=== PATIENT | female | born 1985 | race Caucasian/White ===

== ENCOUNTER 2016-10-22 22:48 | Emergency (ER) | payer OTHER, BC ==
[~2016-10-22] VITALS: Ht 157.5 cm; Wt 79.4 kg
[2016-10-23] MEDS ORDERED: KETOROLAC 60 MG/2 ML VIAL (J1885) IM ONE (02:15)
[2016-10-23] MEDS ORDERED: KETOROLAC 30 MG/ML VIAL (J1885) As Ordered ONE (03:00)
[2016-10-23] MEDS ORDERED: CODE60TA2 PO (03:02)
[2016-10-23] MEDS ORDERED: CODE30TA3 PO (03:03)
[2016-10-23 03:15] VITALS: BP 122/70
--- NOTE | 2016-10-23 08:44 | REP ---
Right knee five views: There are no comparisons. Mineralization and joint spaces are normal. There is no fracture or dislocation. No unusual calcifications. There is an effusion in the suprapatellar pouch. Impression: Suprapatellar effusion. Otherwise, negative right knee. Signed by Ken Wyman MD 10/23/2016 08:36 A
--- NOTE | 2016-10-24 07:10 | ED PDOC ---
Post-Departure Follow-Up ncog faxed formal report of right knee film for fu Walter Odom MD October 24, 2016 07:10
== END 2016-10-23 03:52 | disposition home or self-care (01) ==
LOC: M ED 10-23 00:11
DX: M23.91 Unspecified internal derangement of right knee (principal); M25.461 Effusion, right knee; X58.XXXA Exposure to other specified factors, initial encounter; Y92.89 Other specified places as the place of occurrence of the external cause; Y93.89 Activity, other specified; F17.200 Nicotine dependence, unspecified, uncomplicated; Z90.49 Acquired absence of other specified parts of digestive tract; Y99.0 Civilian activity done for income or pay
CPT/HCPCS: 73564; 96372; 99283; J1885

== ENCOUNTER → 2017-11-24 | Outpatient (CLI) | payer OTHER | LOC: M WUC 13:54 | DX: M25.561 Pain in right knee (principal) | CPT/HCPCS: 73560 ==

== ENCOUNTER 2018-03-27 13:03 | Emergency (ER) | payer SELFPAY, OTHER | END 2018-03-27 14:37 | disposition home or self-care (01) | LOC: M ED 13:03 | DX: B02.9 Zoster without complications (principal); L02.412 Cutaneous abscess of left axilla; Z87.440 Personal history of urinary (tract) infections; Z87.442 Personal history of urinary calculi; Z72.0 Tobacco use; Z88.5 Allergy status to narcotic agent | CPT/HCPCS: 99283 ==

== ENCOUNTER → 2018-06-24 | Outpatient (REF) | payer OTHER ==
[~2018-06-24] MED LIST: ACET30TAB PO; BACT800T5 PO; CODE30TA3 PO; CODE60TA2 PO; VALA1TAB2 PO
== END ==
LOC: M SFHCPLAZ 17:51
PROVIDERS: ATTEND Dermatology
DX: D22.72 Melanocytic nevi of left lower limb, including hip (principal)

== ENCOUNTER → 2018-08-12 | Outpatient (CLI) | payer OTHER ==
--- NOTE | 2018-08-12 17:04 | REP ---
Clinical: Umbilical hernia. Technique: Real time haas scale ultrasound examination using linear high frequency and curved array transducer. Findings: Directed ultrasound examination of the periumbilical region demonstrates a supraumbilical fat-containing hernia measuring 5.7 x 2.2 x 4.7 cm with a 1 cm defect through the abdominal wall. Impression: 5.7 cm fat containing supraumbilical ventral hernia. Electronically Signed by Gamaliel Renae MD 08/12/2018 04:56 P
== END ==
LOC: M RAD 07:12
PROVIDERS: ATTEND Surgery
DX: K43.9 Ventral hernia without obstruction or gangrene (principal)

== ENCOUNTER → 2021-02-19 | Outpatient (REF) | payer OTHER ==
[~2021-02-19] MED LIST changes: +ACET-716 PO; +ACET300T47 PO; -ACET30TAB PO; -CODE30TA3 PO; -VALA1TAB2 PO; +VALA1TAB5 PO
[2021-02-19 18:34] LABS: HEMATOCRIT 42.9 % (36.0-47.0); HEMOGLOBIN 14.7 g/dl (12.0-15.5); MEAN CORPUSCULAR HEMOGLOBIN 31.2 pg (27.0-33.0); MEAN CORPUSCULAR HGB CONC 34.3 g/dl (32.0-36.5); MEAN CORPUSCULAR VOLUME 91.1 fl (80.0-96.0); PLATELET COUNT, AUTOMATED 219 10^3/uL (150-450); RED BLOOD COUNT 4.71 10^6/uL (4.00-5.40); WHITE BLOOD COUNT 16.2 10^3/uL (4.0-10.0)
[2021-02-19 22:28] LABS: HCG, SERUM QUANTITATIVE 27477 MIU/ML; HEPATITIS B SURFACE ANTIGEN NEGATIVE (NEGATIVE); HEPATITIS C VIRUS ABY INDEX 0.1 INDEX (<0.8); HIV 1&2 SCREEN CENTAUR NEGATIVE (NEGATIVE)
== END ==
LOC: M LAB REF 17:42
PROVIDERS: ATTEND Obstetrics & Gynecology
DX: Z32.01 Encounter for pregnancy test, result positive (principal); O36.80X0 Pregnancy with inconclusive fetal viability, not applicable or unspecified

== ENCOUNTER → 2021-03-07 | Outpatient (REF) | payer OTHER | LOC: M LAB REF 16:20 | PROVIDERS: ATTEND Advanced Practice Midwife | DX: O03.9 Complete or unspecified spontaneous abortion without complication (principal) ==

== ENCOUNTER → 2021-03-14 | Outpatient (REF) | payer OTHER | LOC: M LAB REF 16:27 | PROVIDERS: ATTEND Obstetrics & Gynecology | DX: O02.1 Missed abortion (principal) ==

== ENCOUNTER → 2021-03-21 | Outpatient (REF) | payer OTHER | LOC: M LAB REF 16:16 | PROVIDERS: ATTEND Advanced Practice Midwife | DX: O02.1 Missed abortion (principal) ==

== ENCOUNTER → 2021-03-28 | Outpatient (REF) | payer OTHER | LOC: M LAB REF 16:39 | PROVIDERS: ATTEND Advanced Practice Midwife | DX: O02.1 Missed abortion (principal) ==

== ENCOUNTER → 2021-10-08 | Outpatient (REF) | payer OTHER ==
[2021-10-08 12:46] LABS: HEMATOCRIT 42.9 % (36.0-47.0); HEMOGLOBIN 14.7 g/dl (12.0-15.5); MEAN CORPUSCULAR HEMOGLOBIN 31.5 pg (27.0-33.0); MEAN CORPUSCULAR HGB CONC 34.3 g/dl (32.0-36.5); MEAN CORPUSCULAR VOLUME 91.9 fl (80.0-96.0); PLATELET COUNT, AUTOMATED 247 10^3/uL (150-450); RED BLOOD COUNT 4.67 10^6/uL (4.00-5.40); WHITE BLOOD COUNT 16.4 10^3/uL (4.0-10.0)
[2021-10-08 13:34] LABS: HEMOGLOBIN A1c 5.1 %
[2021-10-08 14:19] LABS: HCG, SERUM QUANTITATIVE 46598 MIU/ML; HEPATITIS B SURFACE ANTIGEN NEGATIVE (NEGATIVE); HEPATITIS C VIRUS ABY INDEX 0.1 INDEX (<0.8); HIV 1&2 SCREEN CENTAUR NEGATIVE (NEGATIVE)
== END ==
LOC: M LAB REF 12:16
PROVIDERS: ATTEND Obstetrics & Gynecology
DX: Z32.01 Encounter for pregnancy test, result positive (principal); O36.80X0 Pregnancy with inconclusive fetal viability, not applicable or unspecified

== ENCOUNTER → 2021-10-21 | Outpatient (CLI) | payer OTHER | LOC: M WHC 08:27 | PROVIDERS: ATTEND Advanced Practice Midwife | DX: O30.041 Twin pregnancy, dichorionic/diamniotic, first trimester (principal); O31.21 Continuing pregnancy after intrauterine death of one fetus or more, first trimester; Z3A.11 11 weeks gestation of pregnancy ==

== ENCOUNTER → 2021-11-05 | Outpatient (REF) | payer OTHER | LOC: M LAB REF 12:07 | PROVIDERS: ATTEND Obstetrics & Gynecology | DX: Z34.81 Encounter for supervision of other normal pregnancy, first trimester (principal) ==

== ENCOUNTER → 2022-01-15 | Outpatient (CLI) | payer OTHER | LOC: M WHC 12:59 | PROVIDERS: ATTEND Obstetrics & Gynecology | DX: Z34.90 Encounter for supervision of normal pregnancy, unspecified, unspecified trimester (principal) ==

== ENCOUNTER → 2022-02-07 | Outpatient (CLI) | payer OTHER | LOC: M WHC 13:58 | PROVIDERS: ATTEND Advanced Practice Midwife | DX: O09.522 Supervision of elderly multigravida, second trimester (principal); Z3A.26 26 weeks gestation of pregnancy; O32.1XX0 Maternal care for breech presentation, not applicable or unspecified ==

== ENCOUNTER → 2022-03-07 | Outpatient (CLI) | payer OTHER ==
[2022-03-07 13:24] LABS: HEMATOCRIT 38.2 % (36.0-47.0); HEMOGLOBIN 12.6 g/dl (12.0-15.5); MEAN CORPUSCULAR HEMOGLOBIN 31.8 pg (27.0-33.0); MEAN CORPUSCULAR VOLUME 96.5 fl (80.0-96.0); PLATELET COUNT, AUTOMATED 275 10^3/uL (150-450); RED BLOOD COUNT 3.96 10^6/uL (4.00-5.40); WHITE BLOOD COUNT 13.3 10^3/uL (4.0-10.0)
[2022-03-07 15:01] LABS: GC DNA AMPLIFICATION NEGATIVE (NEGATIVE)
== END ==
LOC: M PLALAB 09:06
PROVIDERS: ATTEND Advanced Practice Midwife
DX: O09.522 Supervision of elderly multigravida, second trimester (principal)

== ENCOUNTER → 2022-03-14 | Outpatient (CLI) | payer OTHER | LOC: M WHC 07:21 | PROVIDERS: ATTEND Obstetrics & Gynecology | DX: O09.522 Supervision of elderly multigravida, second trimester (principal) ==

== ENCOUNTER → 2022-03-18 | Outpatient (CLI) | payer OTHER | LOC: M LAB 08:42 | PROVIDERS: ATTEND Advanced Practice Midwife | DX: O99.810 Abnormal glucose complicating pregnancy (principal) ==

== ENCOUNTER 2022-03-26 13:01 | Emergency (ER) | payer OTHER ==
[~2022-03-26] VITALS: Ht 157.5 cm; Wt 91.6 kg
[2022-03-26] MEDS ORDERED: VITA200032 (13:12)
[2022-03-26] MEDS ORDERED: PRENTAB53 PO (13:12)
[2022-03-26] MEDS ORDERED: BUPR300T92 (13:12)
[2022-03-26 17:41] LABS: BASO % 0.3 % (0.0-1.0); EOS # 0.2 10^3/uL (0.0-0.5); EOS % 1.5 % (0.0-3.0); HEMATOCRIT 39.9 % (36.0-47.0); HEMOGLOBIN 13.5 g/dl (12.0-15.5); LYMPH # 3.1 10^3/uL (1.5-5.0); LYMPH % 22.6 % (24.0-44.0); MEAN CORPUSCULAR HEMOGLOBIN 31.9 pg (27.0-33.0); MEAN CORPUSCULAR HGB CONC 33.8 g/dl (32.0-36.5); MEAN CORPUSCULAR VOLUME 94.3 fl (80.0-96.0); MONO # 0.6 10^3/uL (0.0-0.8); MONO % 4.5 % (2.0-8.0); NEUTROPHILS # 9.7 10^3/uL (1.5-8.5); PLATELET COUNT, AUTOMATED 234 10^3/uL (150-450); RED BLOOD COUNT 4.23 10^6/uL (4.00-5.40); WHITE BLOOD COUNT 13.8 10^3/uL (4.0-10.0)
[2022-03-26 18:06] LABS: ALBUMIN 3.2 GM/DL (3.2-5.2); ALT/SGPT 24 U/L (12-78); BILIRUBIN,TOTAL 0.3 MG/DL (0.2-1.0); BLOOD UREA NITROGEN 8 MG/DL (7-18); CALCIUM LEVEL 9.1 MG/DL (8.5-10.1); CARBON DIOXIDE LEVEL 21 MEQ/L (21-32); CHLORIDE LEVEL 108 MEQ/L (98-107); CREATININE FOR GFR 0.43 MG/DL (0.55-1.30); GLOMERULAR FILTRATION RATE > 60.0 (>60); GLUCOSE, FASTING 82 MG/DL (70-100); POTASSIUM SERUM 4.1 MEQ/L (3.5-5.1); SODIUM LEVEL 138 MEQ/L (136-145); TOTAL PROTEIN 7.3 GM/DL (6.4-8.2)
[2022-03-26 18:17] LABS: FREE T4 0.92 NG/DL (0.76-1.46); THYROID STIMULATING HORMONE 1.13 uIU/ML (0.358-3.740)
[2022-03-26 18:50] VITALS: BP 143/87
== END 2022-03-26 19:19 | disposition home or self-care (01) ==
LOC: M ED 13:01
DX: O99.513 Diseases of the respiratory system complicating pregnancy, third trimester (principal); O26.93 Pregnancy related conditions, unspecified, third trimester; O24.419 Gestational diabetes mellitus in pregnancy, unspecified control; Z3A.33 33 weeks gestation of pregnancy; Z88.5 Allergy status to narcotic agent

== ENCOUNTER → 2022-04-10 | Outpatient (REF) | payer OTHER ==
[~2022-04-10] MED LIST changes: +BUPR300T92; +PRENTAB53 PO; +VITA200032
== END ==
LOC: M SFHCWAGY 13:16
PROVIDERS: ATTEND Obstetrics & Gynecology
DX: Z34.93 Encounter for supervision of normal pregnancy, unspecified, third trimester (principal)

== ENCOUNTER → 2022-04-23 | Outpatient (CLI) | payer OTHER | LOC: M WHC 11:40 | PROVIDERS: ATTEND Obstetrics & Gynecology | DX: O24.419 Gestational diabetes mellitus in pregnancy, unspecified control (principal) ==

== ENCOUNTER 2022-05-02 12:46 | Inpatient (IN) | payer OTHER ==
[~2022-05-02] VITALS: Ht 157.5 cm; Wt 95.7 kg
[2022-05-02 13:16] VITALS: BP 126/77
[2022-05-02] MEDS ORDERED: HOME MED LIST COMPLETE! XX SCH (13:20)
[2022-05-02] MEDS ORDERED: IRON18TA PO (13:20)
[2022-05-02 13:38] VITALS: BP 121/70
[2022-05-02] MEDS ORDERED: METHYLERGONOVINE MALEATE 0.2 MG/ML VIAL (J2210) IM PRN (16:10)
[2022-05-02] MEDS ORDERED: TRANEXAMIC ACID INJection 1,000 MG in NS 100 ML IV PRN (16:10)
[2022-05-02] MEDS ORDERED: LIDOCAINE 1% MDV 20ML VIAL INFIL PRN (16:10)
[2022-05-02] MEDS ORDERED: NOVOINJ13 SC ×2 (16:39)
[2022-05-02] MEDS ORDERED: NOVOINJ12 SC ×2 (16:39)
[2022-05-02 17:09] LABS: HEMATOCRIT 38.3 % (36.0-47.0); HEMOGLOBIN 13.1 g/dl (12.0-15.5); MEAN CORPUSCULAR HGB CONC 34.2 g/dl (32.0-36.5); MEAN CORPUSCULAR VOLUME 93.6 fl (80.0-96.0); PLATELET COUNT, AUTOMATED 219 10^3/uL (150-450); RED BLOOD COUNT 4.09 10^6/uL (4.00-5.40); WHITE BLOOD COUNT 12.4 10^3/uL (4.0-10.0)
[2022-05-02] MEDS: miSOPROStol 50MCG 1/2 TABLET PO SCH ×2 (17:14→20:10)
[2022-05-03] VITALS (27 sets, daily range): BP systolic 108–152; BP diastolic 52–94
[2022-05-03] MEDS: miSOPROStol 50MCG 1/2 TABLET PO SCH ×3 (01:00→09:50)
[2022-05-03] MEDS ORDERED: HumuLIN R (REGULAR) INSULIN (NovoLIN R) **100U/ML** PER UNIT SC STA (07:57)
[2022-05-03] MEDS ORDERED: HumuLIN N INSULIN (NovoLIN N) PER UNIT SC ONE (08:30)
[2022-05-03] MEDS: VITAMIN D 1,000 INTERNATIONAL UNITS TABLET PO SCH (10:51)
[2022-05-03] MEDS: PRENATAL VITAMINS CHEWABLE TABLET PO SCH (10:51)
[2022-05-03] MEDS: buPROPion **XL** TABLET 150MG (WELLBUTRIN XL) PO SCH (10:51)
[2022-05-03] MEDS ORDERED: LR 1,000 ML IV SCH (13:50)
[2022-05-03] MEDS ORDERED: OXYTOCIN DRIP 30 UNITS in IV 1 EA IV SCH (13:50)
[2022-05-03] MEDS ORDERED: INSULIN IV RATE CHANGE DOCUMENTATION ML/HR XX SCH (13:50)
[2022-05-03] MEDS: NS 1,000 ML IV SCH (14:14)
[2022-05-03] MEDS: INSULIN REGULAR IN 0.9 % NACL 100 UNIT in IV 1 EA IV SCH ×2 (14:45)
[2022-05-03] MEDS: D5W/0.9% SODIUM CHLORIDE 1,000 ML IV SCH (16:50)
[2022-05-03] MEDS ORDERED: BUTORPHANOL 2 MG/ML 1ML VIAL IV ONE (21:10)
[2022-05-03] MEDS ORDERED: PROMETHAZINE 25MG/ML 1ML VIAL IV PRN (21:10)
[2022-05-03] MEDS: DOCUSATE SODIUM 100MG CAPSULE PO SCH (21:50)
[2022-05-04] VITALS (47 sets, daily range): BP systolic 96–159; BP diastolic 55–91
[2022-05-04] MEDS: NS 1,000 ML IV SCH ×3 (00:43→14:49)
[2022-05-04] MEDS: INSULIN REGULAR IN 0.9 % NACL 100 UNIT in IV 1 EA IV SCH ×2 (02:52)
[2022-05-04] MEDS ORDERED: EPIDURAL/PCA KEYS XX PRN (08:50)
[2022-05-04] MEDS ORDERED: ePHEDrine SULFATE 25 MG/5 ML(5MG/ML) SYRINGE IVP PRN (08:50)
[2022-05-04] MEDS ORDERED: FENTANYL/ROPIVACAINE/NACL BAG 100 ML EPIDURAL SCH (08:50)
[2022-05-04] MEDS ORDERED: LR 500 ML IV PRN (08:50)
[2022-05-04] MEDS ORDERED: NALOXONE INJ 0.4MG/1ML VIAL (J2310 PER 1MG) IV PRN ×3 (08:50→17:35)
[2022-05-04] MEDS ORDERED: ONDANSETRON 4MG 2ML VIAL IV PRN ×3 (08:50→17:45)
[2022-05-04] MEDS ORDERED: diphenhydrAMINE 50MG/ML VIAL IV PRN ×2 (08:50→17:35)
[2022-05-04] MEDS ORDERED: DOCUSATE SODIUM 100MG CAPSULE PO SCH ×2 (09:00→21:00)
[2022-05-04] MEDS: DOCUSATE SODIUM 100MG CAPSULE PO SCH ×2 (09:00→21:00)
[2022-05-04] MEDS: PRENATAL VITAMINS CHEWABLE TABLET PO SCH ×2 (09:00→12:26)
[2022-05-04] MEDS: buPROPion **XL** TABLET 150MG (WELLBUTRIN XL) PO SCH (12:27)
[2022-05-04] MEDS: VITAMIN D 1,000 INTERNATIONAL UNITS TABLET PO SCH (12:27)
[2022-05-04] MEDS: D5W/0.9% SODIUM CHLORIDE 1,000 ML IV SCH (13:50)
[2022-05-04] MEDS ORDERED: TRANEXAMIC ACID INJection 1,000 MG in NS 100 ML IV PRN (15:25)
[2022-05-04] MEDS ORDERED: METHYLERGONOVINE MALEATE 0.2 MG/ML VIAL (J2210) IM PRN (15:25)
[2022-05-04] MEDS ORDERED: BICITRA 30ML SOLN UDC PO ONE (15:30)
[2022-05-04] MEDS ORDERED: AZITHROMYCIN INJ 500 MG, VIAL MATE ADAPTER 1 EACH in NS 250 ML IV ONE (15:30)
[2022-05-04] MEDS ORDERED: ceFAZolin SOD 2 GM in IV 1 EA IV ONE (16:00)
[2022-05-04] MEDS ORDERED: MORPHINE PRES-FREE INJ 10 MG/10 ML VIAL As Ordered ONE (16:18)
[2022-05-04] MEDS ORDERED: KETOROLAC 60MG 2ML VIAL As Ordered ONE (16:18)
[2022-05-04] MEDS ORDERED: ONDANSETRON 4MG 2ML VIAL As Ordered ONE (16:18)
[2022-05-04] MEDS ORDERED: dexameTHASONE 4 MG/ML 1ML VIAL (J1100 PER 1MG) As Ordered ONE (16:18)
[2022-05-04] MEDS ORDERED: OXYTOCIN INJ 10 UNITS/ML VIAL (J2590) As Ordered ONE (16:18)
[2022-05-04] MEDS ORDERED: LIDOCAINE 2% W/EPINEPHRINE 20ML VIAL **PRES FREE As Ordered ONE (16:24)
[2022-05-04] MEDS ORDERED: OXYTOCIN 30 UNITS IN 0.9% NaCl 500ML IV BAG (J2590) As Ordered ONE (16:49)
[2022-05-04] MEDS ORDERED: MIDAZOLAM INJ 2MG/2ML VIAL (J2250 PER 1MG) As Ordered ONE (16:59)
[2022-05-04] MEDS ORDERED: fentaNYL 100 MCG/2 ML INJECTION As Ordered ONE (17:03)
[2022-05-04] MEDS ORDERED: BUPIVACAINE/EPIN 0.25% 30 ML VIAL As Ordered ONE (17:18)
[2022-05-04] MEDS ORDERED: MEPERIDINE INJ 25 MG/ML VIAL (J2175) IV PRN (17:35)
[2022-05-04] MEDS ORDERED: HYDROMORPHONE HCL 0.5 MG/ 0.5 ML SYRINGE (J1170 PER 1) IV PRN (17:35)
[2022-05-04] MEDS ORDERED: LR 1,000 ML IV SCH (17:35)
[2022-05-04] MEDS: SLF 3 ML SYR IV SCH (17:35)
[2022-05-04] MEDS ORDERED: fentaNYL 100 MCG/2 ML INJECTION IV PRN (17:35)
[2022-05-04] MEDS ORDERED: METOCLOPRAMIDE INJ 10MG/2ML VIAL (J2765 PER 1) IV PRN (17:35)
[2022-05-04] MEDS ORDERED: **NOTE PATIENT COMMENT** MISC XX SCH (17:35)
[2022-05-04] MEDS ORDERED: RHOGAM 300 MCG (1500 IU) INJ (J2790) IM SCH (17:45)
[2022-05-04] MEDS ORDERED: OXYTOCIN DRIP 30 UNITS in IV 1 EA IV SCH (17:45)
[2022-05-04] MEDS ORDERED: PERCOCET 5MG/325MG TAB PO PRN (17:45)
[2022-05-04] MEDS ORDERED: MOM 30ML SUSPENSION UDC PO PRN (17:45)
[2022-05-04] MEDS ORDERED: LOPERAMIDE 2 MG CAPLET PO PRN (17:55)
[2022-05-04] MEDS: LR 1,000 ML IV SCH (18:54)
[2022-05-04] MEDS: PERCOCET 5MG/325MG TAB PO PRN (21:12)
[2022-05-04] MEDS: KETOROLAC 30 MG/ML 1ML VIAL IV SCH (23:52)
[2022-05-05] MEDS: SLF 3 ML SYR IV SCH ×2 (00:35→09:35)
[2022-05-05] MEDS: LR 1,000 ML IV SCH (01:45)
[2022-05-05 02:00] VITALS: BP 108/55
[2022-05-05] MEDS: SIMETHICONE 80MG CHEW TAB PO PRN ×3 (04:29→18:32)
[2022-05-05] MEDS: PERCOCET 5MG/325MG TAB PO PRN ×6 (04:30→23:14)
[2022-05-05 05:35] VITALS: BP 119/66
[2022-05-05] MEDS: KETOROLAC 30 MG/ML 1ML VIAL IV SCH ×2 (06:00→12:20)
[2022-05-05 07:01] LABS: HEMATOCRIT 31.9 % (36.0-47.0); HEMOGLOBIN 10.9 g/dl (12.0-15.5); MEAN CORPUSCULAR HEMOGLOBIN 32.3 pg (27.0-33.0); MEAN CORPUSCULAR HGB CONC 34.2 g/dl (32.0-36.5); MEAN CORPUSCULAR VOLUME 94.7 fl (80.0-96.0); PLATELET COUNT, AUTOMATED 175 10^3/uL (150-450); RED BLOOD COUNT 3.37 10^6/uL (4.00-5.40); WHITE BLOOD COUNT 13.3 10^3/uL (4.0-10.0)
[2022-05-05] MEDS: DOCUSATE SODIUM 100MG CAPSULE PO SCH ×2 (08:40→21:00)
[2022-05-05] MEDS: PRENATAL VITAMINS CHEWABLE TABLET PO SCH ×2 (08:40→08:41)
[2022-05-05 10:00] VITALS: BP 120/63
[2022-05-05] MEDS: VITAMIN D 1,000 INTERNATIONAL UNITS TABLET PO SCH (10:02)
[2022-05-05] MEDS: buPROPion **XL** TABLET 150MG (WELLBUTRIN XL) PO SCH (10:02)
[2022-05-05 14:00] VITALS: BP 106/58
[2022-05-05 18:00] VITALS: BP 121/65
[2022-05-05] MEDS: IBUPROFEN 800 MG TAB PO SCH (20:02)
[2022-05-05 22:00] VITALS: BP 111/58
[2022-05-06 02:00] VITALS: BP 114/62
[2022-05-06] MEDS: SIMETHICONE 80MG CHEW TAB PO PRN ×2 (03:59→10:18)
[2022-05-06] MEDS: IBUPROFEN 800 MG TAB PO SCH ×2 (04:00→11:28)
[2022-05-06] MEDS: PERCOCET 5MG/325MG TAB PO PRN ×2 (04:07→08:25)
[2022-05-06 06:00] VITALS: BP 118/61
[2022-05-06] MEDS: buPROPion **XL** TABLET 150MG (WELLBUTRIN XL) PO SCH (08:24)
[2022-05-06] MEDS: DOCUSATE SODIUM 100MG CAPSULE PO SCH (08:24)
[2022-05-06] MEDS: PRENATAL VITAMINS CHEWABLE TABLET PO SCH ×2 (08:24→09:15)
[2022-05-06] MEDS: VITAMIN D 1,000 INTERNATIONAL UNITS TABLET PO SCH (08:27)
[2022-05-06] MEDS ORDERED: INFLUENZA QUADRIVALENT PF VACCINE 0.5ML SYRINGE IM.IMMUN ONE (09:00)
[2022-05-06] MEDS ORDERED: MEASLES,MUMPS,RUBELLA VACCINE INJ (MMR-II) (90707) SC.IMMUN ONE (09:00)
[2022-05-06] MEDS ORDERED: IBUP-1022 PO (09:37)
[2022-05-06] MEDS ORDERED: OXYC1TAB23 PO (09:38)
== END 2022-05-06 12:30 | disposition home or self-care (01) | DRG 540 ==
LOC: M LDI 12:46 → M OBS 05-04 19:30
PROVIDERS: ADMIT Obstetrics & Gynecology; ATTEND Obstetrics & Gynecology
PROC: 3E0P7GC Introduction of Other Therapeutic Substance into Female Reproductive, Via Natural or Artificial Opening (ICD-10-PCS; 2022-05-02)
PROC: 10907ZC Drainage of Amniotic Fluid, Therapeutic from Products of Conception, Via Natural or Artificial Opening (ICD-10-PCS; 2022-05-04)
PROC: 10D00Z1 Extraction of Products of Conception, Low, Open Approach (ICD-10-PCS; principal; 2022-05-04 16:00)
DX: O24.424 Gestational diabetes mellitus in childbirth, insulin controlled (principal); F32.A Depression, unspecified; Z3A.38 38 weeks gestation of pregnancy; O99.334 Smoking (tobacco) complicating childbirth; F17.210 Nicotine dependence, cigarettes, uncomplicated; Z79.4 Long term (current) use of insulin; O99.344 Other mental disorders complicating childbirth; F41.9 Anxiety disorder, unspecified; O62.0 Primary inadequate contractions; O09.523 Supervision of elderly multigravida, third trimester; Z37.0 Single live birth

== ENCOUNTER → 2022-08-26 | Outpatient (REF) | payer OTHER ==
[~2022-08-26] MED LIST changes: +IBUP-1022 PO; +IRON18TA PO; +NOVOINJ12 SC; +NOVOINJ13 SC; +OXYC1TAB23 PO
[2022-08-26 17:55] LABS: HEMOGLOBIN A1c 5.1 % (4.0-6.0)
== END ==
LOC: M LAB REF 16:17
PROVIDERS: ATTEND Pediatrics
DX: E66.3 Overweight (principal); F41.1 Generalized anxiety disorder

== ENCOUNTER → 2022-12-03 | Outpatient (REF) | payer OTHER, MEDICAID ==
[2022-12-04 12:03] LABS: GC DNA AMPLIFICATION NEGATIVE (NEGATIVE)
== END ==
LOC: M SFHCWAGY 09:59
PROVIDERS: ATTEND Nurse Practitioner Family
DX: Z11.3 Encounter for screening for infections with a predominantly sexual mode of transmission (principal); R39.15 Urgency of urination; Z12.4 Encounter for screening for malignant neoplasm of cervix

== ENCOUNTER → 2023-07-20 | Outpatient (REF) | payer OTHER, MEDICAID ==
[2023-07-20 19:05] LABS: HEMOGLOBIN A1c 5.8 % (4.0-6.0)
[2023-07-20 19:11] LABS: ALBUMIN 3.8 G/DL (3.2-5.2); ALKALINE PHOSPHATASE 81 U/L (46-116); ALT/SGPT 33 U/L (7.0-40); AST/SGOT 15 U/L (<34); BILIRUBIN,TOTAL 0.3 MG/DL (0.3-1.2); BLOOD UREA NITROGEN 14 MG/DL (9-23); CALCIUM LEVEL 8.6 MG/DL (8.5-10.1); CARBON DIOXIDE LEVEL 25 MMOL/L (20-31); CHLORIDE LEVEL 109 MMOL/L (98-107); CHOLESTEROL LEVEL 149 MG/DL (<200); CHOLESTEROL RISK RATIO 3.92 (<5); CREATININE FOR GFR 0.77 MG/DL (0.55-1.30); GLOMERULAR FILTRATION RATE > 60.0 (>60); GLUCOSE, FASTING 123 MG/DL (60-100); LDL CHOLESTEROL 76.6 MG/DL (<100); POTASSIUM SERUM 4.8 MMOL/L (3.5-5.1); SODIUM LEVEL 139 MMOL/L (136-145); TOTAL PROTEIN 7.1 G/DL (5.7-8.2); TRIGLYCERIDES LEVEL 172 MG/DL (<150)
[2023-07-20 19:13] LABS: THYROID STIMULATING HORMONE 1.446 uIU/ML (0.55-4.78)
== END ==
LOC: M LAB REF 17:07
PROVIDERS: ATTEND Pediatrics
DX: E66.01 Morbid (severe) obesity due to excess calories (principal)

== ENCOUNTER → 2024-10-24 | Outpatient (REF) | payer OTHER ==
[~2024-10-24] MED LIST changes: +BUPR-766; -BUPR300T92
[2024-10-24 18:34] LABS: ALBUMIN 4.3 G/DL (3.2-5.2); ALKALINE PHOSPHATASE 59 U/L (35-104); ALT/SGPT 18 U/L (7.0-40); AST/SGOT 11 U/L (<34); BILIRUBIN,TOTAL 0.3 MG/DL (0.3-1.2); BLOOD UREA NITROGEN 13 MG/DL (9-23); CALCIUM LEVEL 9.5 MG/DL (8.5-10.1); CARBON DIOXIDE LEVEL 28 MMOL/L (20-31); CHLORIDE LEVEL 108 MMOL/L (98-107); CREATININE FOR GFR 0.64 MG/DL (0.55-1.30); GLOMERULAR FILTRATION RATE > 90.0 (>58); GLUCOSE, FASTING 108 MG/DL (60-100); POTASSIUM SERUM 4.6 MMOL/L (3.5-5.1); SODIUM LEVEL 144 MMOL/L (136-145); TOTAL PROTEIN 7.4 G/DL (5.7-8.2)
[2024-10-24 18:37] LABS: THYROID STIMULATING HORMONE 0.918 uIU/ML (0.55-4.78)
[2024-10-24 18:54] LABS: HEMOGLOBIN A1c 5.1 % (4.0-6.0)
== END ==
LOC: M LAB REF 17:50
PROVIDERS: ATTEND Pediatrics
DX: F41.1 Generalized anxiety disorder (principal); R73.03 Prediabetes

== ENCOUNTER → 2025-02-28 | Outpatient (REF) | payer OTHER ==
[~2025-02-28] MED LIST changes: -IBUP-1022 PO; +IBUP600T42 PO
[2025-02-28 16:21] LABS: GC DNA AMPLIFICATION NEGATIVE (NEGATIVE)
[2025-02-28 16:24] LABS: Trichomonas vaginalis (AMP) NOT DETECTED (NEGATIVE)
[2025-02-28 19:29] LABS: LUTEINIZING HORMONE 5.8 mIU/ML
[2025-02-28 19:59] LABS: HIV 1&2 SCREEN NEGATIVE (NEGATIVE)
[2025-02-28 20:07] LABS: HEPATITIS C VIRUS ABY INDEX 0.05 INDEX (<0.8)
== END ==
LOC: M LAB REF 14:24
PROVIDERS: ATTEND Pediatrics
DX: N92.6 Irregular menstruation, unspecified (principal); Z11.3 Encounter for screening for infections with a predominantly sexual mode of transmission